=== PATIENT | female | born 1965 | race Caucasian/White ===

== ENCOUNTER 2018-12-05 10:09 | Inpatient (IN) | payer OTHER ==
[2018-12-05] VITALS (32 sets, daily range): BP systolic 93–138; BP diastolic 44–76; PULSE 60–87; RESP 12–20; Ht 170.2 cm; Wt 137.9 kg
[~2018-12-05] VITALS: Ht 170.2 cm; Wt 137.9 kg
--- NOTE | 2018-12-05 11:16 | PREAC ---
Date/Time of Note Date/Time of Note DATE: 12/05/18 TIME: 11:14 Anesthesia Eval and Record Evaluation Time Pre-Procedure Interview DATE: 12/05/18 TIME: 11:14 Age 53 Sex female NPO: 8 hrs Preoperative diagnosis right knee osteoarthritis Planned procedure right total knee replacement Past Medical History Past Medical History: Includes Musculoskeletal: Osteoarthritis GI: Morbid obesity Surgery & Anesthesia Issues No known issue Meds Anticoagulation: No Beta Darion within 24 hr: No Reason Beta Darion not given: Pt. not on B-Darion Meds reviewed: Yes Allergies Coded Allergies: Penicillins (Verified Allergy, Mild, 12/04/18) acetaminophen (Verified Allergy, Mild, 12/04/18) oxycodone (Verified Allergy, Mild, 12/04/18) pseudoephedrine (Verified Allergy, Mild, 12/04/18) Allergies Reviewed: Yes Labs/Studies Labs Reviewed: Reviewed by anesthesiologist test: Negative Studies: ECG, CXR Pre-procedure Exam Airway: Adequate mouth opening, Adequate thyromental dist Mallampati: Mallampati II Teeth: Normal Lung: Normal Heart: Normal ASA Physical Status ASA physical status: 3 Emergency: None Planned Anesthetic General/MAC: ETT (vs. ), LMA Neuraxial: Spinal Nerve block: Femoral (right adductor) Planned Pain Management Sub-arachniod narcotics, Single shot nerve block, Parenteral pain med Pre-operative Attestations Prior to commencing anesthesia and surgery, the patient was re-evaluated, there was verification of: *The patient's identity *The results of appropriate recent lab work and preoperative vital signs *The above evaluation not changing prior to induction *Anesthetic plan, risk benefits, alternative and complications discussed with patient/family; questions answered; patient/family understands, accepts and wishes to proceed. ALEXEY RIVERA MD Dec 05, 2018 11:16
[2018-12-05] MEDS ORDERED: LACTATED RINGER'S 1,000 ML IV SCH (11:30)
[2018-12-05] MEDS ORDERED: PROPOFOL 20 ML ONE ×2 (11:45→12:34)
[2018-12-05] MEDS ORDERED: LIDOCAINE 2% (SDV) 5 ML INJ ONE (11:45)
[2018-12-05] MEDS ORDERED: morphine SULFATE/PF (10 MG/10 ML) INJ ONE (11:46)
[2018-12-05] MEDS ORDERED: MIDAZOLAM 1 MG/ML 2 ML INJ ONE (11:49)
--- NOTE | 2018-12-05 12:10 | HPN ---
Date/Time of Note Date/Time of Note DATE: 12/05/18 TIME: 12:09 Interval H&P Admission Note Pt. seen H&P reviewed: No system changes NICOLAS GATICA MD Dec 05, 2018 12:10
[2018-12-05] MEDS ORDERED: FENTAnyl 50 MCG/ML VIAL ONE ×2 (12:30→14:34)
[2018-12-05] MEDS ORDERED: POLYMYXIN/BACITRACIN 1L IRRIG ONE (12:32)
[2018-12-05] MEDS ORDERED: TRANEXAMIC ACID 1GM/100ML(PMX) 200 ML ONE (12:32)
[2018-12-05] MEDS ORDERED: CEFAZOLIN 1 GM INJ ONE ×3 (12:38→12:46)
[2018-12-05] MEDS ORDERED: FAMOTIDINE 20 MG INJ ONE (12:43)
[2018-12-05] MEDS ORDERED: DEXAMETHASONE 4 MG/ML 5 ML INJ ONE (12:43)
[2018-12-05] MEDS ORDERED: ONDANSETRON 4 MG INJ ONE (12:43)
[2018-12-05] MEDS ORDERED: SUCCINYLCHOLINE CHLORIDE 100 MG/5 ML SYG IV ONE (12:47)
--- NOTE | 2018-12-05 14:14 | OPR ---
Date/Time of Note Date/Time of Note DATE: 12/05/18 TIME: 12:10 Operative Report Preoperative Diagnosis right knee arthritis Postoperative Diagnosis same Operation/Procedure Performed right total knee replacement Surgeon see signature line Merchandise Deliverer brittany Anesthesia Type: general Estimated Blood Loss: 150 - 200 ml's Transfusion none Specimen bone Grafts/Implants yen and shelia implant PS knee Tubes/Drains drain Complications none Pt Condition Post Procedure: stable Procedure Description right total kinee replacement NICOLAS GATICA MD Dec 05, 2018 12:20
--- NOTE | 2018-12-05 14:34 | PAC ---
Date/Time of Note Date/Time of Note DATE: 12/05/18 TIME: 14:30 Post-Anesthesia Notes Post-Anesthesia Note Last documented vital signs Vital Signs Date Temp Pulse Resp B/P (MAP) Pulse Ox O2 O2 Flow FiO2 Time Delivery Rate 12/05/18 98.3 69 16 138/76 97 Room Air 11:19 (96) Activity: WNL Respiratory function: WNL Cardiovascular function: WNL Mental status: Baseline Pain reasonably controlled: Yes Hydration appropriate: Yes Nausea/Vomiting absent: Yes Comments BP: 116/65 HR: 84 RR: 15 T: 99.9 SaO2: 97% ALEXEY RIVERA MD Dec 05, 2018 14:34
[2018-12-05] MEDS ORDERED: ONDANSETRON 4 MG INJ IV PRN ×5 (14:46→16:30)
[2018-12-05] MEDS ORDERED: HYDROmorphONE 1 MG/5 ML IV SYRINGE IV PRN ×4 (14:48→15:00)
[2018-12-05] MEDS ORDERED: FENTAnyl 50 MCG/ML VIAL IV PRN ×2 (14:50→15:00)
[2018-12-05] MEDS: FENTAnyl 50 MCG/ML VIAL IV PRN ×5 (14:59→15:55)
[2018-12-05] MEDS ORDERED: NALOXONE (0.4 MG/ML) INJ IV PRN (15:00)
[2018-12-05] MEDS ORDERED: DIPHENHYDRAMINE 50 MG INJ IV PRN ×2 (15:00)
[2018-12-05] MEDS ORDERED: MEPERIDINE 25 MG INJ IV PRN (15:00)
[2018-12-05] MEDS ORDERED: HYDROmorphONE 0.5 MG/0.5 ML SYG IV PRN ×2 (15:00)
[2018-12-05] MEDS ORDERED: PROCHLORPERAZINE 10 MG INJ IV PRN (15:00)
[2018-12-05] MEDS: HYDROmorphONE 1 MG/5 ML IV SYRINGE IV PRN ×3 (15:08→15:53)
--- NOTE | 2018-12-05 16:08 | CONS ---
Assessment/Plan Assessment/Plan Hospital Course (Demo Recall) Patient is a female the past medical history significant for arthritis, renal angiomyolipoma, thalassemia who presents to [facility] for elective total right knee replacement. Patient is currently in the postanesthesia care unit, doing well, patient denies chest pain, shortness of breath, headache, nausea, vomiting, abdominal pain. Patient does state that she feels a little groggy but other than that she feels well. Objective Physical exam General: Patient is laying in bed and answers questions appropriately Mentation: Patient is alert and oriented 4, Head: Normocephalic atraumatic Eyes: EOMI, pupils reactive to light Neck: Supple, nontender, midline Respiratory: Clear to auscultation bilaterally Cardiovascular: regular rate, no obvious murmurs Gastrointestinal: non-tender to palpation, bowel sounds heard. Neurological: Moves all extremities spontaneously Skin: No new skin lesions. Surgical site bandaged, CDI Assessment and plan Right knee arthritis, status post total right knee arthroplasty -Orthopedic surgeon to manage -Monitor closely Renal angiomyolipoma -Under the care of urologist, chronic, monitor, follow-up outpatient History of thalassemia -Follow-up with your primary care provider, stable -Monitor Disposition -Observe overnight, plan is for home health physical therapy and discharge tomorrow per orthopedic surgeon. Consultation Date/Type/Reason Admit Date/Time Dec 05, 2018 at 10:09 Date/Time of Note DATE: 12/05/18 TIME: 16:08 Past Medical History Medications Current Medications Lactated Ringer's 1,000 ml @ 0 mls/hr Q0M IV ; Start 12/05/18 at 11:30; Stop 12/05/18 at 18:00 Hydromorphone HCl (Dilaudid) 0.5 mg Q2H PRN IV .PAIN 1-5; Start 12/05/18 at 15:00; Stop 12/06/18 at 12:30 Hydromorphone HCl (Dilaudid) 1 mg Q2H PRN IV .PAIN 6-10; Start 12/05/18 at 15:00; Stop 12/06/18 at 12:30 Diphenhydramine HCl (Benadryl) 25 mg Q4H PRN IV .PRURITUS Last administered on 12/05/18at 15:01; Admin Dose 25 MG; Start 12/05/18 at 15:00; Stop 12/06/18 at 12:30 Naloxone HCl (Narcan) 0.2 mg Q2M PRN IV .RESP RATE; Start 12/05/18 at 15:00; Stop 12/06/18 at 12:30 Miscellaneous Information (* Miscellaneous Pharmacy Order) DURAMORPH: 0.2 MG SPI... GIVEN NEURAXIAL XX ; Start 12/05/18 at 15:00 Hydromorphone HCl (Dilaudid) 0.4 mg PACU PRN IV MOD PAIN 4-6 Last administered on 12/05/18at 15:53; Admin Dose 0.4 MG; Start 12/05/18 at 15:00; Stop 12/05/18 at 18:00 Fentanyl (Sublimaze) 50 mcg PACU ORDER PRN IV MOD PAIN 4-6 Last administered on 12/05/18at 15:55; Admin Dose 50 MCG; Start 12/05/18 at 15:00; Stop 12/05/18 at 18:00 Fentanyl (Sublimaze) 75 mcg PACU ORDER PRN IV SEVERE PAIN 7-10 Last administered on 12/05/18at 15:07; Admin Dose 75 MCG; Start 12/05/18 at 15:00; Stop 12/05/18 at 18:00 Prochlorperazine (Compazine Inj) 5 mg PACU ORDER PRN IV NAUSEA/VOMITING; Start 12/05/18 at 15:00; Stop 12/05/18 at 18:00 Meperidine HCl (Demerol) 25 mg PACU ORDER PRN IV .RIGORS Last administered on 12/05/18at 15:00; Admin Dose 25 MG; Start 12/05/18 at 15:00; Stop 12/05/18 at 18:00 Diphenhydramine HCl (Benadryl) 25 mg PACU ORDER PRN IV .PRURITUS; Start 12/05/18 at 15:00; Stop 12/05/18 at 18:00 Ondansetron HCl (Zofran Inj) 4 mg Q6H PRN IV .NAUSEA/VOMITING; Start 12/05/18 at 14:46; Stop 12/06/18 at 12:30 Ondansetron HCl (Zofran Inj) 4 mg PACU ORDER PRN IV NAUSEA/VOMITING; Start 12/05/18 at 14:48; Stop 12/05/18 at 18:00 Hydromorphone HCl (Dilaudid) 0.2 mg PACU PRN IV MILD PAIN 1-3; Start 12/05/18 at 14:48; Stop 12/05/18 at 18:00 Hydromorphone HCl (Dilaudid) 0.6 mg PACU PRN IV SEVERE PAIN 7-10 Last administered on 12/05/18at 15:00; Admin Dose 0.6 MG; Start 12/05/18 at 14:49; Stop 12/05/18 at 18:00 Fentanyl (Sublimaze) 25 mcg PACU ORDER PRN IV MILD PAIN 1-3; Start 12/05/18 at 14:50; Stop 12/05/18 at 18:00 Hydromorphone HCl (Dilaudid REGIONAL COORDINATOR) 0.2 mg Q4PCA IV ; Start 12/05/18 at 16:00 Aspirin (Ecotrin) 325 mg BID PO ; Start 12/05/18 at 21:00; Status UNV IV Flush (NS 3 ml) 3 ml PER PROTOCOL IV ; Start 12/05/18 at 16:30; Status UNV Ondansetron HCl (Zofran Inj) 4 mg Q6H PRN IV NAUSEA/VOMITING; Start 12/05/18 at 16:30; Status UNV Acetaminophen (Tylenol Tab) 650 mg Q6H PRN PO .PAIN 1-3 OR TEMP; Start 12/05/18 at 16:30; Status UNV Oxycodone/ Acetaminophen (Percocet (5/ 325)) 1 tab Q6H PRN PO .PAINS 4-6; Start 12/05/18 at 16:30; Status UNV Morphine Sulfate (morphine) 2 mg Q4H PRN IV .PAIN 7-10; Start 12/05/18 at 16:30; Status UNV Allergies: Coded Allergies: Penicillins (Verified Allergy, Mild, 12/04/18) acetaminophen (Verified Allergy, Mild, 12/04/18) oxycodone (Verified Allergy, Mild, 12/04/18) pseudoephedrine (Verified Allergy, Mild, 12/04/18) Social History Smoking Status: Never smoker Exam/Review of Systems Exam Vitals Vital Signs Date Temp Pulse Resp B/P (MAP) Pulse Ox O2 O2 Flow FiO2 Time Delivery Rate 12/05/18 99.9 14:33 12/05/18 80 16 118/63 97 Mask 8.0 14:26 (81) Medications Medication Current Medications Lactated Ringer's 1,000 ml @ 0 mls/hr Q0M IV ; Start 12/05/18 at 11:30; Stop 12/05/18 at 18:00 Hydromorphone HCl (Dilaudid) 0.5 mg Q2H PRN IV .PAIN 1-5; Start 12/05/18 at 15:00; Stop 12/06/18 at 12:30 Hydromorphone HCl (Dilaudid) 1 mg Q2H PRN IV .PAIN 6-10; Start 12/05/18 at 15:00; Stop 12/06/18 at 12:30 Diphenhydramine HCl (Benadryl) 25 mg Q4H PRN IV .PRURITUS Last administered on 12/05/18at 15:01; Admin Dose 25 MG; Start 12/05/18 at 15:00; Stop 12/06/18 at 12:30 Naloxone HCl (Narcan) 0.2 mg Q2M PRN IV .RESP RATE; Start 12/05/18 at 15:00; Stop 12/06/18 at 12:30 Miscellaneous Information (* Miscellaneous Pharmacy Order) DURAMORPH: 0.2 MG SPI... GIVEN NEURAXIAL XX ; Start 12/05/18 at 15:00 Hydromorphone HCl (Dilaudid) 0.4 mg PACU PRN IV MOD PAIN 4-6 Last administered on 12/05/18at 15:53; Admin Dose 0.4 MG; Start 12/05/18 at 15:00; Stop 12/05/18 at 18:00 Fentanyl (Sublimaze) 50 mcg PACU ORDER PRN IV MOD PAIN 4-6 Last administered on 12/05/18at 15:55; Admin Dose 50 MCG; Start 12/05/18 at 15:00; Stop 12/05/18 at 18:00 Fentanyl (Sublimaze) 75 mcg PACU ORDER PRN IV SEVERE PAIN 7-10 Last administered on 12/05/18at 15:07; Admin Dose 75 MCG; Start 12/05/18 at 15:00; Stop 12/05/18 at 18:00 Prochlorperazine (Compazine Inj) 5 mg PACU ORDER PRN IV NAUSEA/VOMITING; Start 12/05/18 at 15:00; Stop 12/05/18 at 18:00 Meperidine HCl (Demerol) 25 mg PACU ORDER PRN IV .RIGORS Last administered on 12/05/18at 15:00; Admin Dose 25 MG; Start 12/05/18 at 15:00; Stop 12/05/18 at 18:00 Diphenhydramine HCl (Benadryl) 25 mg PACU ORDER PRN IV .PRURITUS; Start 12/05/18 at 15:00; Stop 12/05/18 at 18:00 Ondansetron HCl (Zofran Inj) 4 mg Q6H PRN IV .NAUSEA/VOMITING; Start 12/05/18 at 14:46; Stop 12/06/18 at 12:30 Ondansetron HCl (Zofran Inj) 4 mg PACU ORDER PRN IV NAUSEA/VOMITING; Start 12/05/18 at 14:48; Stop 12/05/18 at 18:00 Hydromorphone HCl (Dilaudid) 0.2 mg PACU PRN IV MILD PAIN 1-3; Start 12/05/18 at 14:48; Stop 12/05/18 at 18:00 Hydromorphone HCl (Dilaudid) 0.6 mg PACU PRN IV SEVERE PAIN 7-10 Last administered on 12/05/18at 15:00; Admin Dose 0.6 MG; Start 12/05/18 at 14:49; Stop 12/05/18 at 18:00 Fentanyl (Sublimaze) 25 mcg PACU ORDER PRN IV MILD PAIN 1-3; Start 12/05/18 at 14:50; Stop 12/05/18 at 18:00 Hydromorphone HCl (Dilaudid REGIONAL COORDINATOR) 0.2 mg Q4PCA IV ; Start 12/05/18 at 16:00 Aspirin (Ecotrin) 325 mg BID PO ; Start 12/05/18 at 21:00; Status UNV IV Flush (NS 3 ml) 3 ml PER PROTOCOL IV ; Start 12/05/18 at 16:30; Status UNV Ondansetron HCl (Zofran Inj) 4 mg Q6H PRN IV NAUSEA/VOMITING; Start 12/05/18 at 16:30; Status UNV Acetaminophen (Tylenol Tab) 650 mg Q6H PRN PO .PAIN 1-3 OR TEMP; Start 12/05/18 at 16:30; Status UNV Oxycodone/ Acetaminophen (Percocet (5/ 325)) 1 tab Q6H PRN PO .PAINS 4-6; Start 12/05/18 at 16:30; Status UNV Morphine Sulfate (morphine) 2 mg Q4H PRN IV .PAIN 7-10; Start 12/05/18 at 16:30; Status UNV DRU GRANGER Dec 05, 2018 16:08
[2018-12-05] MEDS: HYDROmorphONE 0.2 MG/ML PCA IV SCH (16:18)
[2018-12-05] MEDS ORDERED: HYDROCODONE/APAP (5/325) TAB NGT PRN (16:30)
[2018-12-05] MEDS ORDERED: ACETAMINOPHEN 325 MG TAB PO PRN (16:30)
[2018-12-05] MEDS ORDERED: morphine 2 MG INJ IV PRN (16:30)
[2018-12-05] MEDS ORDERED: OXYCODONE/ACETAMINOPHEN (5/325) TAB PO PRN (16:30)
[2018-12-05] MEDS ORDERED: NACL 0.9% 3 ML SYG IV SCH (16:30)
[2018-12-05] MEDS: KETOROLAC 30 MG INJ IV SCH ×2 (17:35→22:17)
[2018-12-05] MEDS: DEXTROSE 5%-LR 1,000 ML IV SCH (17:35)
[2018-12-05] MEDS: CEFAZOLIN 1 GM/50 ML (PMX) 50 ML IVPB SCH ×2 (17:35→22:17)
--- NOTE | 2018-12-05 20:42 | OPR ---
DATE OF OPERATION: 12/05/2018 SURGEON: Nicolas Mckenzie MD SPRING TIER: EVANGELINA Cuellar ANESTHESIA: General and spinal. PREOPERATIVE DIAGNOSIS: Severe osteoarthritis, right knee. POSTOPERATIVE DIAGNOSIS: Severe osteoarthritis, right knee. PROCEDURE PERFORMED: Right total knee replacement arthroplasty using Alvarenga and Nephew posterior stab ilized component size 5, Oxinium size 3 tibia, 11 mm liner, 23 mm patellar button components cemented with antibiotic-impregnated cement. ESTIMATED BLOOD LOSS: 200 mL. TOURNIQUET TIME: 55 minutes. COMPLICATIONS: None. PROCEDURE IN DETAILS: The patient was taken to the operating room and spinal block followed by gener al anesthesia. Tourniquet was applied on the right thigh. Right leg was prepped and draped in the u sual sterile manner. Exsanguinated with Esmarch bandage, tourniquet was inflated to 300 mmHg. Previ ously, Jasmine catheter was inserted sterilely. Anterior incision was made with medial arthrotomy. Se neil arthritis was noted in all compartments. Osteophytes were removed. Patella was prepared for a 23 mm button. The femoral cut was made with intramedullary guide for the posterior stabilized compon ent size was selected. Trial reduction was carried out with the 9 and 11 mm liners. The 11 mm revealed full extension, stable medial and lateral stressing in flexion and extension, flexion up to 120 degrees. Definitive components were opened and brought in. Bone was irrigated with pulsatile l avage and dried. Cement was applied. Excess cement was removed meticulously. The patient was also given intravenous tranexamic acid per protocol. Tourniquet was deflated. Hemostasis was ascertained . Autotransfusion drain was placed into the knee joint. Patellar tracking was satisfactory. The ar throtomy was closed with #2 FiberWire sutures and #1 Vicryl sutures for the subcutaneous layer. Skin was closed with tadeo. Mepilex bandage was applied, compression bandage, ice and knee immobilizer . Anesthetic was reversed. The patient was taken to recovery room in stable condition. Dictated By: NICOLAS DAVIS/NTS Conf#: [id number] DID#: [id number] CC: DRU GRANGER MD;*EndCC*
[2018-12-05] MEDS: ASPIRIN (EC) 325 MG TAB PO SCH (21:05)
[2018-12-06] VITALS: BP 108/55; PULSE 66; RESP 16
[2018-12-06] MEDS: HYDROmorphONE 0.2 MG/ML PCA IV SCH ×2 (04:17→19:41)
[2018-12-06] MEDS: KETOROLAC 30 MG INJ IV SCH (05:56)
[2018-12-06] MEDS: CEFAZOLIN 1 GM/50 ML (PMX) 50 ML IVPB SCH (05:56)
[2018-12-06 07:16] VITALS: BP 98/54; PULSE 59; RESP 15
[2018-12-06] MEDS: ASPIRIN (EC) 325 MG TAB PO SCH ×2 (08:53→20:58)
[2018-12-06] MEDS ORDERED: HYDROCODONE/APAP (10/325) TAB PO PRN (09:00)
--- NOTE | 2018-12-06 14:09 | PN ---
Date/Time of Note Date/Time of Note DATE: 12/06/18 TIME: 14:08 Objective Vitals Vital Signs Date Temp Pulse Resp B/P (MAP) Pulse Ox O2 O2 Flow FiO2 Time Delivery Rate 12/06/18 18 13:00 12/06/18 98.0 59 98/54 (69) 100 Nasal 07:16 Cannula 12/06/18 2.0 00:00 Intake and Output 12/05/18 12/05/18 12/06/18 1515:00 23:00 07:00 IntakeIntake Total 1400 ml 1055 ml 500 ml OutputOutput Total 755 ml 520 ml 140 ml BalanceBalance 645 ml 535 ml 360 ml Results Result Diagram: 12/06/18 0430 12/06/18 043 Medications Medications Current Medications Miscellaneous Information (* Miscellaneous Pharmacy Order) DURAMORPH: 0.2 MG SPI... GIVEN NEURAXIAL XX ; Start 12/05/18 at 15:00 Hydromorphone HCl (Dilaudid PETROLEUM REFINERY WORKER) 0.2 mg Q4PCA IV Last administered on 12/06/18at 04:17; Admin Dose 0.2 MG; Start 12/05/18 at 16:00 Aspirin (Ecotrin) 325 mg BID PO Last administered on 12/06/18at 08:53; Admin Dose 325 MG; Start 12/05/18 at 21:00 IV Flush (NS 3 ml) 3 ml PER PROTOCOL IV ; Start 12/05/18 at 16:30 Ondansetron HCl (Zofran Inj) 4 mg Q6H PRN IV NAUSEA/VOMITING; Start 12/05/18 at 16:30 Acetaminophen (Tylenol Tab) 650 mg Q6H PRN PO .PAIN 1-3 OR TEMP; Start 12/05/18 at 16:30 Dextrose/Lactated Ringer's 1,000 ml @ 50 mls/hr Q20H IV Last administered on 12/05/18at 17:35; Admin Dose 50 MLS/HR; Start 12/05/18 at 16:30 Acetaminophen/ Hydrocodone Bitart ([place] (10/325)) 1 tab Q4H PRN PO MODERATE PAIN LEVEL 4-6; Start 12/06/18 at 09:00 VTE Prophylaxis Risk score (from Nsg)>0 risk: 4 SCD applied (from Nsg): Yes Lines/Catheters IV Catheter Type: Jasmine in Place: No Assessment/Plan Hospital Course Subjective Patient not able to ambulate very well. Objective Physical exam General: Patient is laying in bed and answers questions appropriately Mentation: Patient is alert and oriented 4, Head: Normocephalic atraumatic Eyes: EOMI, pupils reactive to light Neck: Supple, nontender, midline Respiratory: Clear to auscultation bilaterally Cardiovascular: regular rate, no obvious murmurs Gastrointestinal: non-tender to palpation, bowel sounds heard. Neurological: Moves all extremities spontaneously Skin: No new skin lesions. Surgical site bandaged, CDI Assessment and plan Right knee arthritis, status post total right knee arthroplasty -Orthopedic surgeon to manage -Monitor closely Renal angiomyolipoma -Under the care of urologist, chronic, monitor, follow-up outpatient History of thalassemia -Follow-up with your primary care provider, stable -Monitor Disposition -Patient having difficulty with ambulation, may need acute rehab unit, will monitor today. DRU GRANGER Dec 06, 2018 14:09
[2018-12-06 14:11] VITALS: BP 105/58; PULSE 60; RESP 16
[2018-12-06] MEDS: DEXTROSE 5%-LR 1,000 ML IV SCH (14:17)
[2018-12-06 19:30] VITALS: BP 146/64; PULSE 68; RESP 20
[2018-12-06] MEDS ORDERED: KETOROLAC 30 MG INJ IV ONE (20:27)
[2018-12-07 02:20] VITALS: BP 134/58; PULSE 70; RESP 20
[2018-12-07 07:35] VITALS: BP 134/60; PULSE 66; RESP 18
[2018-12-07] MEDS: HYDROmorphONE 0.2 MG/ML PCA IV SCH (08:02)
[2018-12-07] MEDS: ASPIRIN (EC) 325 MG TAB PO SCH ×2 (08:56→21:10)
[2018-12-07] MEDS: DEXTROSE 5%-LR 1,000 ML IV SCH (10:30)
[2018-12-07] MEDS: DOCUSATE SODIUM 100 MG CAP PO SCH ×2 (10:30→21:10)
[2018-12-07] MEDS ORDERED: MAGNESIUM HYDROXIDE 30ML CUP PO PRN (10:30)
[2018-12-07] MEDS ORDERED: OXYCODONE/ACETAMINOPHEN (10/325) TAB PO PRN (12:00)
[2018-12-07] MEDS: GABAPENTIN 300 MG CAP PO SCH ×2 (12:48→21:19)
[2018-12-07] MEDS: CELECOXIB 100 MG CAP PO SCH ×2 (12:48→21:10)
--- NOTE | 2018-12-07 13:19 | PN ---
Date/Time of Note Date/Time of Note DATE: 12/07/18 TIME: 13:17 Objective Vitals Vital Signs Date Temp Pulse Resp B/P (MAP) Pulse Ox O2 O2 Flow FiO2 Time Delivery Rate 12/07/18 98.3 66 18 134/60 99 Room Air 07:35 (84) 12/06/18 2.0 00:00 Intake and Output 12/06/18 12/06/18 12/07/18 1515:00 23:00 07:00 IntakeIntake Total 725 ml 850 ml 700 ml OutputOutput Total 1000 ml 700 ml BalanceBalance -275 ml 150 ml 700 ml Results Result Diagram: 12/07/18 0425 12/07/18 0425 Medications Medications Current Medications Miscellaneous Information (* Miscellaneous Pharmacy Order) DURAMORPH: 0.2 MG SPI... GIVEN NEURAXIAL XX ; Start 12/05/18 at 15:00 Aspirin (Ecotrin) 325 mg BID PO Last administered on 12/07/18at 08:56; Admin Dose 325 MG; Start 12/05/18 at 21:00 IV Flush (NS 3 ml) 3 ml PER PROTOCOL IV ; Start 12/05/18 at 16:30 Ondansetron HCl (Zofran Inj) 4 mg Q6H PRN IV NAUSEA/VOMITING; Start 12/05/18 at 16:30 Acetaminophen (Tylenol Tab) 650 mg Q6H PRN PO .PAIN 1-3 OR TEMP; Start 12/05/18 at 16:30 Dextrose/Lactated Ringer's 1,000 ml @ 50 mls/hr Q20H IV Last administered on 12/07/18at 10:30; Admin Dose 50 MLS/HR; Start 12/05/18 at 16:30 Magnesium Hydroxide (Milk Of Mag) 30 ml DAILY PRN PO CONSTIPATION Last administ ered on 12/07/18at 10:30; Admin Dose 30 ML; Start 12/07/18 at 10:30 Docusate Sodium (Colace) 100 mg BID PO Last administered on 12/07/18at 10:30; Admin Dose 100 MG; Start 12/07/18 at 10:30 Hydromorphone HCl (Dilaudid) 1 mg Q2 PRN IV SEVERE PAIN LEVEL 7-10; Start 12/07/18 at 12:00 Gabapentin (Neurontin) 300 mg TID PO Last administered on 12/07/18at 12:48; Admin Dose 300 MG; Start 12/07/18 at 13:00 Celecoxib (Celebrex) 100 mg BID PO Last administered on 12/07/18at 12:48; Admin Dose 100 MG; Start 12/07/18 at 12:00 Acetaminophen/ Hydrocodone Bitart ([place] (10/325)) 1 tab Q4H PRN PO MODERATE PAIN LEVEL 4-6; Start 12/07/18 at 13:00 VTE Prophylaxis Risk score (from Ns)>0 risk: 6 SCD applied (from [facility] [place]): Yes Lines/Catheters IV Catheter Type: Jasmine in Place: No Assessment/Plan Hospital Course Subjective Patient not able to ambulate very well still Objective Physical exam General: Patient is laying in bed and answers questions appropriately Mentation: Patient is alert and oriented 4, Head: Normocephalic atraumatic Eyes: EOMI, pupils reactive to light Neck: Supple, nontender, midline Respiratory: Clear to auscultation bilaterally Cardiovascular: regular rate, no obvious murmurs Gastrointestinal: non-tender to palpation, bowel sounds heard. Neurological: Moves all extremities spontaneously Skin: No new skin lesions. Surgical site bandaged, CDI Assessment and plan Right knee arthritis, status post total right knee arthroplasty -Orthopedic surgeon to manage -Monitor closely Renal angiomyolipoma -Under the care of urologist, chronic, monitor, follow-up outpatient History of thalassemia -Follow-up with your primary care provider, stable -Monitor Disposition -Patient having difficulty with ambulation, may need acute rehab unit, will monitor today. 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 - likely will need ARU or other rehab DRU GRANGER Dec 07, 2018 13:19
[2018-12-07 14:29] VITALS: BP 139/71; PULSE 80; RESP 18
[2018-12-07] MEDS: HYDROCODONE/APAP (10/325) TAB PO PRN ×2 (15:21→20:06)
[2018-12-07 19:52] VITALS: BP 139/63; PULSE 93; RESP 20
[2018-12-07] MEDS: HYDROmorphONE 1 MG/ML SYG IV PRN (21:09)
[2018-12-08 02:16] VITALS: BP 134/60; PULSE 90; RESP 18
[2018-12-08 07:34] VITALS: BP 131/73; PULSE 77; RESP 18
[2018-12-08] MEDS: HYDROmorphONE 1 MG/ML SYG IV PRN ×3 (08:24→15:28)
[2018-12-08] MEDS: HYDROCODONE/APAP (10/325) TAB PO PRN ×4 (08:27→22:19)
[2018-12-08] MEDS: CELECOXIB 100 MG CAP PO SCH ×2 (08:50→20:27)
[2018-12-08] MEDS: DOCUSATE SODIUM 100 MG CAP PO SCH ×2 (08:50→20:27)
[2018-12-08] MEDS: GABAPENTIN 300 MG CAP PO SCH ×3 (08:51→20:27)
[2018-12-08] MEDS: ASPIRIN (EC) 325 MG TAB PO SCH ×2 (08:51→20:27)
--- NOTE | 2018-12-08 11:55 | PN ---
Date/Time of Note Date/Time of Note DATE: 12/08/18 TIME: 11:54 Objective Vitals Vital Signs Date Temp Pulse Resp B/P (MAP) Pulse Ox O2 O2 Flow FiO2 Time Delivery Rate 12/08/18 98.6 77 18 131/73 99 Room Air 07:34 (92) 12/06/18 2.0 00:00 Intake and Output 12/07/18 12/07/18 12/08/18 1515:00 23:00 07:00 IntakeIntake Total 1150 ml 2320 ml 1040 ml OutputOutput Total 1150 ml 2500 ml 2900 ml BalanceBalance 0 ml -180 ml -1860 ml Results Result Diagram: 12/08/18 0418 12/08/18 0418 Medications Medications Current Medications Miscellaneous Information (* Miscellaneous Pharmacy Order) DURAMORPH: 0.2 MG SPI... GIVEN NEURAXIAL XX ; Start 12/05/18 at 15:00 Aspirin (Ecotrin) 325 mg BID PO Last administered on 12/08/18at 08:51; Admin Dose 325 MG; Start 12/05/18 at 21:00 IV Flush (NS 3 ml) 3 ml PER PROTOCOL IV Last administered on 12/07/18at 21:11; Admin Dose 3 ML; Start 12/05/18 at 16:30 Ondansetron HCl (Zofran Inj) 4 mg Q6H PRN IV NAUSEA/VOMITING; Start 12/05/18 at 16:30 Acetaminophen (Tylenol Tab) 650 mg Q6H PRN PO .PAIN 1-3 OR TEMP; Start 12/05/18 at 16:30 Magnesium Hydroxide (Milk Of Mag) 30 ml DAILY PRN PO CONSTIPATION Last administered on 12/07/18at 10:30; Admin Dose 30 ML; Start 12/07/18 at 10:30 Docusate Sodium (Colace) 100 mg BID PO Last administered on 12/08/18 08:50; Admin Dose 100 MG; Start 12/07/18 at 10:30 Hydromorphone HCl (Dilaudid) 1 mg Q2 PRN IV SEVERE PAIN LEVEL 7-10 Last administered on 12/08/18 08:24; Admin Dose 1 MG; Start 12/07/18 at 12:00 Gabapentin (Neurontin) 300 mg TID PO Last administered on 7/6/19at 08:51; Admin Dose 300 MG; Start 12/07/18 at 13:00 Celecoxib (Celebrex) 100 mg BID PO Last administered on 12/08/18 08:50; Admin Dose 100 MG; Start 12/07/18 at 12:00 Acetaminophen/ Hydrocodone Bitart ([place] (10/325)) 1 tab Q4H PRN PO MODERATE PAIN LEVEL 4-6 Last administered on 12/08/18 08:27; Admin Dose 1 TAB; Start 12/07/18 at 13:00 VTE Prophylaxis Risk score (from Ns)>0 risk: 11 [place] [facility] [place] Lines/Catheters IV Catheter Type: Jasmine in Place: No Assessment/Plan Hospital Course Subjective Patient doing much better with ambulation Objective Physical exam General: Patient is laying in bed and answers questions appropriately Mentation: Patient is alert and oriented 4, Head: Normocephalic atraumatic Eyes: EOMI, pupils reactive to light Neck: Supple, nontender, midline Respiratory: Clear to auscultation bilaterally Cardiovascular: regular rate, no obvious murmurs Gastrointestinal: non-tender to palpation, bowel sounds heard. Neurological: Moves all extremities spontaneously Skin: No new skin lesions. Surgical site bandaged, CDI Assessment and plan Right knee arthritis, status post total right knee arthroplasty -Orthopedic surgeon to manage -Monitor closely Renal angiomyolipoma -Under the care of urologist, chronic, monitor, follow-up outpatient History of thalassemia -Follow-up with your primary care provider, stable -Monitor Disposition -Patient improving significantly with ambulation, at this point patient will likely be okay for home health PT if she continues to progress, pending case management to arrange multiple items needed for home for home health PT. DRU GRANGER Dec 08, 2018 11:55
[2018-12-08] MEDS ORDERED: BISACODYL (EC) 5 MG TAB PO PRN (16:00)
[2018-12-08] MEDS ORDERED: SENNA/DOCUSATE NA (8.6MG/50MG) TAB PO PRN (16:00)
[2018-12-08 19:30] VITALS: BP 136/65; PULSE 87; RESP 18
[2018-12-09] MEDS: HYDROmorphONE 1 MG/ML SYG IV PRN ×2 (00:22→09:07)
[2018-12-09 02:55] VITALS: BP 124/60; PULSE 89; RESP 18
[2018-12-09] MEDS: HYDROCODONE/APAP (10/325) TAB PO PRN ×5 (06:33→23:36)
[2018-12-09 07:36] VITALS: BP 143/67; PULSE 78; RESP 18
[2018-12-09] MEDS: ASPIRIN (EC) 325 MG TAB PO SCH ×2 (09:06→20:14)
[2018-12-09] MEDS: CELECOXIB 100 MG CAP PO SCH ×2 (09:06→20:14)
[2018-12-09] MEDS: DOCUSATE SODIUM 100 MG CAP PO SCH ×2 (09:06→20:15)
[2018-12-09] MEDS: GABAPENTIN 300 MG CAP PO SCH ×3 (09:06→20:14)
--- NOTE | 2018-12-09 13:57 | PN ---
Date/Time of Note Date/Time of Note DATE: 12/09/18 TIME: 13:56 Objective Vitals Vital Signs Date Temp Pulse Resp B/P (MAP) Pulse Ox O2 O2 Flow FiO2 Time Delivery Rate 12/09/18 97.8 78 18 143/67 96 Room Air 07:36 (92) 12/06/18 2.0 00:00 Intake and Output 12/08/18 12/08/18 12/09/18 1515:00 23:00 07:00 IntakeIntake Total 1600 ml 1040 ml 800 ml BalanceBalance 1600 ml 1040 ml 800 ml Results Result Diagram: 12/09/1893212/09/18932 Medications Medications Current Medications Miscellaneous Information (* Miscellaneous Pharmacy Order) DURAMORPH: 0.2 MG SPI... GIVEN NEURAXIAL XX ; Start 12/05/18 at 15:00 Aspirin (Ecotrin) 325 mg BID PO Last administered on 12/09/18 09:06; Admin Dose 325 MG; Start 12/05/18 at 21:00 IV Flush (NS 3 ml) 3 ml PER PROTOCOL IV Last administered on 12/07/18at 21:11; Admin Dose 3 ML; Start 12/05/18 at 16:30 Ondansetron HCl (Zofran Inj) 4 mg Q6H PRN IV NAUSEA/VOMITING; Start 12/05/18 at 16:30 Acetaminophen (Tylenol Tab) 650 mg Q6H PRN PO .PAIN 1-3 OR TEMP; Start 12/05/18 at 16:30 Magnesium Hydroxide (Milk Of Mag) 30 ml DAILY PRN PO CONSTIPATION Last administered on 12/07/18at 10:30; Admin Dose 30 ML; Start 12/07/18 at 10:30 Docusate Sodium (Colace) 100 mg BID PO Last administered on 12/09/18 09:06; Admin Dose 100 MG; Start 12/07/18 at 10:30 Hydromorphone HCl (Dilaudid) 1 mg Q2 PRN IV SEVERE PAIN LEVEL 7-10 Last administered on 12/09/18 09:07; Admin Dose 1 MG; Start 12/07/18 at 12:00 Gabapentin (Neurontin) 300 mg TID PO Last administered on 12/09/18at 12:48; Admin Dose 300 MG; Start 12/07/18 at 13:00 Celecoxib (Celebrex) 100 mg BID PO Last administered on 12/09/18at 09:06; Admin Dose 100 MG; Start 12/07/18 at 12:00 Acetaminophen/ Hydrocodone Bitart ([place] (10/325)) 1 tab Q4H PRN PO MODERATE PAIN LEVEL 4-6 Last administered on 12/09/18at 11:22; Admin Dose 1 TAB; Start 12/07/18 at 13:00 Senna/Docusate Sodium (Senokot-S) 1 tab DAILY PRN PO constipation; Start 12/08/18 at 16:00 Bisacodyl (Dulcolax) 5 mg DAILY PRN PO CONSTIPATION Last administered on 12/08/18at 18:17; Admin Dose 5 MG; Start 12/08/18 at 16:00 VTE Prophylaxis Risk score (from Ns)>0 risk: 8 SCD applied (from [facility]): Yes Lines/Catheters IV Catheter Type: Jasmine in Place: No Assessment/Plan Hospital Course Subjective Patient doing much better with ambulation Objective Physical exam General: Patient is laying in bed and answers questions appropriately Mentation: Patient is alert and oriented 4, Head: Normocephalic atraumatic Eyes: EOMI, pupils reactive to light Neck: Supple, nontender, midline Respiratory: Clear to auscultation bilaterally Cardiovascular: regular rate, no obvious murmurs Gastrointestinal: non-tender to palpation, bowel sounds heard. Neurological: Moves all extremities spontaneously Skin: No new skin lesions. 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 DRU GRANGER Dec 09, 2018 13:57
[2018-12-09 14:48] VITALS: BP 149/59; RESP 18
[2018-12-09 20:04] VITALS: BP 130/63; PULSE 83; RESP 18
[2018-12-10 02:40] VITALS: BP 143/63; PULSE 68; RESP 18
[2018-12-10] MEDS: HYDROCODONE/APAP (10/325) TAB PO PRN ×4 (03:19→18:53)
[2018-12-10 07:18] VITALS: BP 139/73; PULSE 73; RESP 18
[2018-12-10] MEDS: ASPIRIN (EC) 325 MG TAB PO SCH (09:21)
[2018-12-10] MEDS: GABAPENTIN 300 MG CAP PO SCH ×2 (09:21→13:31)
[2018-12-10] MEDS: CELECOXIB 100 MG CAP PO SCH (09:21)
[2018-12-10] MEDS: DOCUSATE SODIUM 100 MG CAP PO SCH (09:21)
[2018-12-10 13:45] VITALS: BP 140/72; PULSE 92; RESP 18
[2018-12-10] MEDS ORDERED: HYDR-4011 PO (14:13)
[2018-12-10] MEDS ORDERED: ASPI325T32 PO (14:13)
--- NOTE | 2018-12-10 14:18 | DS ---
Date/Time of Note Date/Time of Note DATE: 12/10/18 TIME: 14:14 Discharge Summary Admission/Discharge Info Admit Date/Time Dec 05, 2018 at 10:09 Discharge Date/Time Discharge Diagnosis 1. s/p right total knee replacement, stable, follow up with ortho and PT 2. Renal angiomyolipoma, follow up with urology 3. History of thalassemia, follow-up with your primary care provider, stable Patient Condition: Stable Hospital Course 53 years old female came in for elective right total knee replacement on 12/05/2018. Patient is doing well with PT, tolerates diet. She will follow up with Ortho and home health PT as outpatient. H/H are 9.5/31, MCV 60.9. Patient has thalassemia. She will follow up with PCP. Home Meds Active Scripts Hydrocodone/Acetaminophen ([place] 5-325 Tablet) 1 Each Tablet, 1 EACH PO Q6H, #20 TAB Prov:FEDE CROWE MD 12/10/18 Aspirin (Aspir-Brianna) 325 Mg Tablet.dr, 325 MG PO BID, #30 Prov:FEDE CROWE MD 12/10/18 Follow-up Plan PCP in one week DZr. Mckenzie in one week Primary Care Provider Not On Staff Doctor FEDE CROWE MD Dec 10, 2018 14:18
[2018-12-11 15:03] VITALS: BP 136/64; PULSE 85; RESP 18
== END 2018-12-10 19:00 | disposition home or self-care (01) | DRG 470 ==
LOC: REC 10:09 → MS1 17:01
PROVIDERS: ADMIT Specialist; ATTEND Specialist
PROC: 0SRC0J9 Replacement of Right Knee Joint with Synthetic Substitute, Cemented, Open Approach (ICD-10-PCS; principal; 2018-12-05 12:00)
DX: M17.11 Unilateral primary osteoarthritis, right knee (principal); Z68.42 Body mass index [BMI] 45.0-49.9, adult; E66.01 Morbid (severe) obesity due to excess calories; D17.71 Benign lipomatous neoplasm of kidney
CPT/HCPCS: 80048; 80053; 83036; 83735; 84100; 85025; 86850; 86900; 86901; 87086; 88304; 88311; 97110; 97116; 97162; 97530; C1713; C1776; J0690; J1100; J1170; J1200; J1885; J2175; J2250; J2274; J2405; J3010; J7121